=== PATIENT | female | born 1990 | race Caucasian/White ===

== ENCOUNTER 2018-04-13 13:49 | Emergency (ER) | payer MEDICAID ==
[~2018-04-13] VITALS: Ht 160 cm; Wt 98.4 kg
[2018-04-13 13:58] VITALS: Ht 160 cm; Wt 98.4 kg
[2018-04-13 14:34] LABS: BASOPHIL % 0.4 % (0-2); PLATELET COUNT 336 x10^3mcL (130-400); RED CELL DISTRIBUTION WIDTH 13.6 % (11.5-14.5)
[2018-04-13 15:38] VITALS: BP 120/57
== END 2018-04-13 15:49 | disposition home or self-care (01) ==
LOC: ED 13:49
PROVIDERS: Emergency Medicine
DX: O20.0 Threatened abortion (principal)
CPT/HCPCS: 36415

== ENCOUNTER 2018-08-03 13:20 | Emergency (ER) | payer MEDICAID ==
[~2018-08-03] VITALS: Ht 160 cm; Wt 105.2 kg
[2018-08-03 13:40] VITALS: Ht 160 cm; Wt 105.2 kg
[2018-08-03 15:10] VITALS: BP 114/46
== END 2018-08-03 15:10 | disposition home or self-care (01) ==
LOC: ED 13:20
DX: O26.892 Other specified pregnancy related conditions, second trimester (principal); L02.411 Cutaneous abscess of right axilla; Z3A.24 24 weeks gestation of pregnancy
CPT/HCPCS: J2001